=== PATIENT | male | born 1945 | race Caucasian/White ===

== ENCOUNTER 2021-07-26 13:22 | Outpatient (CLI) | payer MEDICARE, OTHER | END 2021-07-26 23:59 | disposition home or self-care (01) | LOC: 64 CT 13:22 | PROVIDERS: ATTEND Internal Medicine Cardiovascular Disease | DX: R91.1 Solitary pulmonary nodule (principal); J92.0 Pleural plaque with presence of asbestos; J84.10 Pulmonary fibrosis, unspecified; J98.11 Atelectasis; I25.10 Atherosclerotic heart disease of native coronary artery without angina pectoris; Z77.090 Contact with and (suspected) exposure to asbestos | CPT/HCPCS: 71250 ==

== ENCOUNTER 2024-03-16 13:35 | Outpatient (CLI) | payer SELFPAY | END 2024-03-16 23:59 | disposition home or self-care (01) | LOC: RAD 13:35 | PROVIDERS: ATTEND Internal Medicine Cardiovascular Disease | DX: R91.8 Other nonspecific abnormal finding of lung field (principal); J98.11 Atelectasis; I70.0 Atherosclerosis of aorta | CPT/HCPCS: 71250 ==